=== PATIENT | male | born 1970 | race Two or more races ===

== ENCOUNTER 2018-03-12 19:50 | Emergency (ER) | payer SELFPAY ==
[~2018-03-12] VITALS: Ht 170.2 cm; Wt 86.2 kg
[2018-03-12] MEDS ORDERED: HYDROcodone/APAP 5/325MG 1 TAB TABLET PO ONE (20:15)
--- NOTE | 2018-03-12 20:55 | RAD ---
EXAM: 3 views left knee DATE: 03/12/2018 8:13 PM INDICATION: injured tonight, twisted knee COMPARISON: No Prior FINDINGS/ IMPRESSION: No evidence of acute fracture or dislocation. No left knee joint effusion. Joint spaces are preserved without significant degenerative/proliferative change. Electronically signed by: Chadd Orr MD (03/12/2018 8:52 PM) [facility]
[2018-03-12] MEDS ORDERED: HYDR-971 PO (21:10)
--- NOTE | 2018-03-12 21:11 | PHYS DOC ---
Past Medical History Past Medical History: No Pertinent History Past Surgical History: Other Additional Past Surgical Histo: VASECTOMY Alcohol Use: Occasionally Drug Use: None Adult General Chief Complaint Chief Complaint: KNEE INJURY HPI HPI Patient is a 47 year old [f__sex] who presents with [] Review of Systems Review of Systems Constitutional: Denies fever or chills [] Eyes: Denies change in visual acuity, redness, or eye pain [] HENT: Denies nasal congestion or sore throat [] Respiratory: Denies cough or shortness of breath [] Cardiovascular: No additional information not addressed in HPI [] GI: Denies abdominal pain, nausea, vomiting, bloody stools or diarrhea [] : Denies dysuria or hematuria [] Musculoskeletal: Denies back pain or joint pain [] Integument: Denies rash or skin lesions [] Neurologic: Denies headache, focal weakness or sensory changes [] Endocrine: Denies polyuria or polydipsia [] All other systems were reviewed and found to be within normal limits, except as documented in this note. Current Medications Current Medications Current Medications Medications (Trade) Dose Ordered Sig/[place] Start Time Stop Time Status Last Admin Dose Admin Acetaminophen/ Hydrocodone Bitart (Lortab 5/325) 1 tab 1X ONCE 03/12/18 20:15 03/12/18 20:45 DC Allergies Allergies Allergies Coded Allergies Type Severity Reaction Last Updated Verified No Known Drug Allergies 03/12/18 No Physical Exam Physical Exam Constitutional: Well developed, well nourished, no acute distress, non-toxic appearance. [] HENT: Normocephalic, atraumatic, bilateral external ears normal, oropharynx moist, no oral exudates, nose normal. [] Eyes: PERRLA, EOMI, conjunctiva normal, no discharge. [] Neck: Normal range of motion, no tenderness, supple, no stridor. [] Cardiovascular:Heart rate regular rhythm, no murmur [] Lungs & Thorax: Bilateral breath sounds clear to auscultation [] Abdomen: Bowel sounds normal, soft, no tenderness, no masses, no pulsatile masses. [] Skin: Warm, dry, no erythema, no rash. [] Back: No tenderness, no CVA tenderness. [] Extremities: No tenderness, no cyanosis, no clubbing, ROM intact, no edema. [] Neurologic: Alert and oriented X 3, normal motor function, normal sensory function, no focal deficits noted. [] Psychologic: Affect normal, judgement normal, mood normal. [] Current Patient Data Vital Signs Vital Signs Date Time Temp Pulse Resp B/P (MAP) Pulse Ox O2 Delivery O2 Flow Rate FiO2 03/12/18 20:15 98.3 92 18 121/80 (94) 99 Room Air 98.3 EKG EKG [] Radiology/Procedures Radiology/Procedures [] Course & Med Decision Making Course & Med Decision Making Pertinent Labs and Imaging studies reviewed. (See chart for details) [] Dragon Disclaimer Dragon Disclaimer This electronic medical record was generated, in whole or in part, using a voice recognition dictation system. Departure Departure Impression: Primary Impression: Knee sprain Disposition: 01 HOME, SELF-CARE Condition: STABLE Referrals: MICHELLE LANDIS (PCP) Patient Instructions: Knee Sprain Additional Instructions: You have been prescribed small amount of pain medication. Do not drive or operate heavy machinery while taking this medication. Follow-up with your primary care provider for possible referral to orthopedics if not improving in 3 days or return to the emergency department if worsening. Scripts Hydrocodone/Apap 5-325 (NORCO 5-325 TABLET) 1 Each Tablet 1 TAB PO PRN Q6HRS PRN for PAIN, #10 TAB 0 Refills Prov: ODILIA HENDRICKS APRN 03/12/18 ODILIA HENDRICKS APRN Mar 12, 2018 21:11
[2018-03-12 22:00] VITALS: BP 144/78
== END 2018-03-12 22:22 | disposition home or self-care (01) ==
LOC: ER 19:50
DX: S83.92XA Sprain of unspecified site of left knee, initial encounter (principal); Z98.52 Vasectomy status; X58.XXXA Exposure to other specified factors, initial encounter; Y93.89 Activity, other specified; Y92.89 Other specified places as the place of occurrence of the external cause; Y99.8 Other external cause status
CPT/HCPCS: 73562; 99284